=== PATIENT | female | born 1940 | race Caucasian/White ===

== ENCOUNTER 2017-02-12 15:23 | Observation (INO) | payer MEDICARE, BC ==
--- NOTE | 2017-02-12 16:00 | ERNOTE ---
Date of Service: 02/12/17 Time Seen by Provider: 02/12/17 15:45 Stated Complaint: PNEUMONIA, DIARRHEA Presenting Symptoms:: cough Source: patient, family - sister in law Immunizations: IMMUNIZATION HX Immunizations Up to Date Yes History of Influenza Vaccine No Hx Pneumococcal Vaccination No Allergies/Adverse Reactions: Allergies Iodinated Contrast- Oral and IV Dye [Iodinated Contrast Media - IV Dye] Allergy (Verified 02/12/17 18:02) iodine Allergy (Verified 02/12/17 18:02) rash flushing contrast dye Allergy (Uncoded 02/12/17 18:02) [place] Home Medications: HOME MEDICATIONS ALPRAZolam [Xanax] 0.25 mg PO QAM 07/11/14 [Last Taken Unknown] Atenolol [Tenormin] 100 mg PO DAILY 07/11/14 [Last Taken Unknown] Atorvastatin Calcium [Lipitor] 40 mg PO HS 07/11/14 [Last Taken Unknown] FLUoxetine HCL [Fluoxetine HCl] 20 mg PO DAILY 07/11/14 [Last Taken Unknown] Furosemide [Lasix] 20 mg PO DAILY 07/11/14 [Last Taken Unknown] Meclizine HCl [Bonine] 25 mg PO TID #30 tab.chew 07/11/14 [Last Taken Unknown] Nitroglycerin [Nitrostat] 0.4 mg SL Q5MIN PRN 07/11/14 [Last Taken Unknown] Potassium Chloride [Klor-Con M10] 10 meq PO TID 07/11/14 [Last Taken Unknown] Topiramate [Topamax] 50 mg PO TID 07/11/14 [Last Taken Unknown] glipiZIDE [Glucotrol Xl] 5 mg PO DAILY 07/11/14 [Last Taken Unknown] - History of Present Ilness Narrative: 76yo, F, presents to ER with "worsening of pneumonia". She was dx with pneumonia at the [facility] by Jennie Jenkins NP on 02/10/16 and started on Levaquin PO, along with Probiotics for diarrhea. Jennie had spoke with Dr. Rodriguez on 02/10/16 and at that time pt opted for home treatment. She reports lying in bed for the last several days, is having productive cough, wheezing, SOB, diffuse body aches , weakness, and chills. Denies any fever at home. States she is feeling much worse since her last visit. She is drinking fluids, but oral intake of food decreased. She reports good urine output, but does continue to have diarrhea. Diarrhea has been present since 02/10/16, states she is having multiple episodes per day, too many too count. States "everything I eat goes right through me." Symptoms remind her of when she had c-diff in the past. Date (Duration): 02/07/17 Timing: getting worse Severity: severe Modifying Factors - Improves: Reports: nothing Modifying Factors - Worsens: Reports: activity Associated Symptoms: Reports: cough, shortness of breath, wheezing, dizziness, sore throat, fever/chills. Denies: chest pain/soreness Prior Treatment: Reports: recently seen, currently on antibiotics - Levaquin 500mg Review of Systems - Review of Systems Constitutional: Present: chills, weakness, fatigue. Absent: fever ENT: Present: sore throat. Absent: ear pain, nose congestion Respiratory: Present: shortness of breath, cough, wheezing Cardiology: Absent: chest pain, syncope, edema Gastrointestinal/Abdominal: Present: diarrhea. Absent: nausea, vomiting, abdominal pain Genitourinary: Absent: frequency, dysuria, decreased urinary output Skin: Absent: rash Neurological: Present: dizziness/light-headedness, weakness - Patient's Past Medical History Patient History - Medical: Diabetes Type 1 Patient History - Cardiac/Respiratory: No pertinent hx Patient History - Cancer: No Hx of Cancer Patient History - Surgical Procedures: No surgical history Patient History - Other: None LMP (females 10-50): Menopausal - Family History Mother Family History - Medical: Father Family History - Medical: Family History - Cardiac/Respiratory: Aneurysm - Social History Living Situations: home Abuse History: No History of abuse Psych History: No pertinent hx Smoking Status: Current every day smoker Have you smoked in the past 12 months: Yes Do you dip or chew tobacco: No Alcohol Use: none Drug Use: none - Immunizations Immunizations Up to Date: Yes Hx Pneumococcal Vaccination: No History of Influenza Vaccine: No Physical Exam - Physical Exam General Appearance: Present: wd/wn, alert Head Exam: Present: normal inspection, no evidence of injury Ears, Nose, Throat: Present: normal ENT inspection Respiratory: Present: no accessory muscle use, decreased breath sounds - throughout, rales - R. base. Absent: rhonchi Cardiovascular/Chest: Present: regular rate, rhythm, no murmur Gastrointestinal/Abdominal: Present: normal bowel sounds, nontender, nondistended, soft Neurological Exam: Present: alert, oriented ED Progress - Date and Time Seen: Date and Time: 02/12/17 16:[address] Rodriguez re: HPI, pending labs and xray orders, but pt is notably worsening since her visit to [facility] with SOB, productive cough and weakness. Order received for admission to hospital, dx: Pneumonia with failed outpt tx. 02/12/17 17:10 Discussed orders and plan for admission - Results and Orders Patient's Lab Results:: I have reviewed the patient's lab results. - Vital Signs Patient's Vital Signs:: I have reviewed the patient's vital signs. Vital Signs: Vital Signs 02/12/17 15:31 Temperature 36.5 C Pulse Rate 69 Respiratory 20 Rate Blood Pressure 127/66 O2 Sat by Pulse 98 Oximetry - X-Ray X-Ray #1 X-Ray: chest Interpretation: Reviewed by me X-ray Comments: [facility] PATIENT RADIOLOGY STUDY REPORT Patient Patient Name:DOROTEO HUIZAR Date: 1940 Sex: F Order Number: [id number] Unique Exam ID: [id number] Exam Requested: CXRPALAT - Chest PA Lateral * Date Scheduled: 02-12-2017 05:18 PM Study Priority: Requesting Service: Requesting Physician: Geno Nuno Reason for Exam: cough, wheezing, sob, dx pneumonia 02/10/16 Radiological Report : [facility] [address] [place] [address] NAME: DOROTEO HUIZAR : 1940 MR #: [id number] CC: LOC: ADM DATE: 02/12/17 X-RAY REPORT [id number] RAD/Chest PA Lateral * Exam Date: 02/12/2017 17:18 Ordering Physician: Geno Nuno History: Cough. Wheezing. Shortness of breath. Technique: PA and lateral views of the chest utilizing 3 total images are compared to prior dated February 09, 2017 Findings: Diffuse hyperinflation of the lungs bilaterally with flattening of the hemidiaphragm. Stable chronic scarring and scattered calcified granulomas. Previously described lingular atelectasis versus infiltrate has resolved. The lungs are clear bilaterally. There is no consolidation, pleural effusion or pneumothorax. Cardiac silhouette and pulmonary vasculature are normal. The osseous structures demonstrate degenerative changes of the spine and shoulders. IMPRESSION: NO ACUTE CARDIOPULMONARY ABNORMALITY IDENTIFIED. Electronically signed by Alana Lema D.O.. Alana Lema DO Dict: 02/12/171721 Typed: 02/12/171721/ 02/12/17 1724 02/12/17 1727 , Approved by: ALANA LEMA Approval Date: 02-12-2017 Approval Time: 05:22 PM THIS REPORT WAS RECEIVED FROM THE [facility] - Progress/Reassessment Chief Complaint: Cough Progress:: Unchanged Departure Clinical Impression: Failure of outpatient treatment Pneumonia Qualifiers: Pneumonia type: due to unspecified organism Laterality: unspecified laterality Lung location: unspecified part of lung Qualified Code(s): J18.9 - Pneumonia, unspecified organism - Departure Disposition: [facility] Condition: Fair
[2017-02-12] MEDS ORDERED: ALBUTEROL SULFATE/IPRATROPIUM 3 ML NEBU IH ONE ×2 (16:05→16:45)
[2017-02-12] MEDS ORDERED: NORMAL SALINE 500 ML IV ONE (16:16)
[2017-02-12 16:29] LABS: Hematocrit 37.5 % (37.0-47.0); Hemoglobin 12.4 gm/dL (12.5-16.0); Mean Cell Volume 83.7 fl (78-100); Mean Corpuscular Hemoglobin 27.7 pg (27-31); Mean Corpuscular Hgb Conc 33.1 g/dl (32-36); Neutrophil # 3.3 K/mm3 (1.3-6.0); Neutrophil % 67.7 % (42-75.0); Platelet Count 110 K/mm3 (150-450); Red Blood Count 4.48 M/mm3 (4.2-5.4); Red Cell Distribution Width 13.1 % (11.5-14.0); White Blood Count 4.9 K/mm3 (4.0-10.5)
[2017-02-12 16:47] LABS: Albumin * 3.5 gm/dl (3.4-5.0); Anion Gap 12.7 mmol/L (6.8-13.8); Bilirubin, Total 0.5 mg/dL (0.0-1.1); Ca. Corrected For Albumin 8.8 mg/dL (8.4-10.2); Calcium * 8.7 mg/dL (7.9-10.9); Carbon Dioxide 26.4 mmol/L (24-32.6); Potassium 3.1 mmol/L (3.4-4.6); Total Protein 7.2 gm/dL (6.2-8.2)
[2017-02-12] MEDS ORDERED: AZITHROMYCIN 500 MG in DEXTROSE 5 % IN WATER 250 ML IV SCH ×2 (17:30)
[2017-02-12] MEDS: NORMAL SALINE 1,000 ML IV PRN (18:06)
[2017-02-12] MEDS ORDERED: POTASSIUM CHLORIDE 20 MEQ TABLET.SA PO ONE (20:01)
--- NOTE | 2017-02-12 22:35 | HP ---
Chief Complaint - Chief Complaint Date of Service: 02/12/17 Time of Service: 22:33 Chief Complaint: Shortness of breath, cough, dizziness, fever and chills History of Present Illness: 76 years old female adm to the hospital with reports of cough, wheezing, shortness of breath and dizziness. Pt stated she was seen at the [facility] 02/09/17, she was diagnosed with pneumonia and recommend to be in the hospital. pt choose to go home with Levaquin 500mg, despite out-pt therapy she continue to get progressively worst. She failed out-pt therapy and is been adm in-pt for further management, she was initiated on Rocephin and Azithromycin in ER. Plan of care discussed with pt she verbalized understanding and agree. - Patient's Past Medical History Patient History - Medical: Diabetes Type 1, Kidney stone, Renal Disease - CKD III, Other - spinal stenosis, DJD Patient History - Cardiac/Respiratory: Hypertension, Other - CAD Patient History - Cancer: No Hx of Cancer Patient History - Surgical Procedures: Total Knee Replacement - Right knee replacement Patient History - Other: None LMP (females 10-50): Menopausal - Family History Mother Family History - Medical: Father Family History - Medical: Family History - Cardiac/Respiratory: Aneurysm - Social History Living Situations: alone Abuse History: No History of abuse Psych History: No pertinent hx Smoking Status: Current every day smoker Cigarettes Packs Per Day: 1 Have you smoked in the past 12 months: Yes Do you dip or chew tobacco: No Patient requests Smoking Cessation Consult: No Initiate information on Smoking Cessation: No Alcohol Use: none Drug Use: none - Immunizations Immunizations Up to Date: Yes Hx Pneumococcal Vaccination: No History of Influenza Vaccine: No Review Of Systems (GEN) - Review of Systems Generalized/Overall Review: Present: Chills, Fever EENTM: Present: No Symptoms Reported Respiratory: Present: Cough, Shortness of Breath, Orthopnea Cardiac: Present: No Symptoms Reported Abdominal: Present: No Symptoms Reported Genitourinary: Present: No Symptoms Reported Musculoskeletal: Present: No Symptoms Reported Neurological: Present: No Symptoms Reported Skin: Present: No Symptoms Reported Endocrine: Present: No Symptoms Reported Immunizations: IMMUNIZATION HX Immunizations Up to Date Yes History of Influenza Vaccine No Hx Pneumococcal Vaccination No Allergies/Adverse Reactions: Allergies Allergy/AdvReac Type Severity Reaction Status Date / Time Iodinated Contrast- Oral and Allergy Verified 02/12/17 18:02 IV Dye [Iodinated Contrast Media - IV Dye] iodine Allergy rash Verified 02/12/17 18:02 flushing contrast dye Allergy [place] Uncoded 02/12/17 18:02 Home Medications: HOME MEDICATIONS ALPRAZolam [Xanax] 0.25 mg PO QAM 07/11/14 [Last Taken Unknown] Atenolol [Tenormin] 100 mg PO DAILY 07/11/14 [Last Taken Unknown] Atorvastatin Calcium [Lipitor] 40 mg PO HS 07/11/14 [Last Taken Unknown] FLUoxetine HCL [Fluoxetine HCl] 30 mg PO DAILY 07/11/14 [Last Taken Unknown] Furosemide [Lasix] 20 mg PO BID 07/11/14 [Last Taken Unknown] Nitroglycerin [Nitrostat] 0.4 mg SL Q5MIN PRN 07/11/14 [Last Taken Unknown] Potassium Chloride [Klor-Con M10] 10 meq PO TID 07/11/14 [Last Taken Unknown] Topiramate [Topamax] 50 mg PO TID 07/11/14 [Last Taken Unknown] glipiZIDE [Glucotrol Xl] 5 mg PO DAILY 07/11/14 [Last Taken Unknown] ALPRAZolam [Xanax] 0.5 mg PO HS 02/12/17 [Last Taken Unknown] Acetaminophen [Arthritis Pain Relief] 650 mg PO QAM PRN 02/12/17 [Last Taken Unknown] Aspirin 81 mg PO DAILY 02/12/17 [Last Taken Unknown] Calcitriol 0.25 mcg PO 3XW 02/12/17 [Last Taken Unknown] Cholecalciferol [Vitamin D] 1,000 unit PO DAILY 02/12/17 [Last Taken Unknown] Doxazosin Mesylate [Cardura] 1 mg PO DAILY 02/12/17 [Last Taken Unknown] Febuxostat [Uloric] 40 mg PO DAILY 02/12/17 [Last Taken Unknown] Levofloxacin [Levaquin] 500 mg PO DAILY 02/12/17 [Last Taken Unknown] Loratadine 10 mg PO DAILY 02/12/17 [Last Taken Unknown] Meclizine HCl 25 mg PO TID PRN 02/12/17 [Last Taken Unknown] Meclizine HCl [Bonine] 25 mg PO TID PRN 02/12/17 [Last Taken Unknown] Omeprazole 40 mg PO DAILY 02/12/17 [Last Taken Unknown] Pramipexole Di-HCl [Pramipexole Dihydrochloride] 0.25 mg PO DAILY 02/12/17 [ Last Taken Unknown] Proair Hfa 90 mcg IH BID 02/12/17 [Last Taken Unknown] Loperamide HCl [Imodium] 2 - 4 mg PO Q4H PRN #30 capsule 02/13/17 [Last Taken Unknown] Exam - Exam Vital Signs: Vital Signs - Last Taken Temp 36.6 C 02/12/17 17:41 Pulse 64 02/12/17 17:41 Resp 16 02/12/17 17:41 BP 150/60 02/12/17 17:41 Pulse Ox 94 02/12/17 17:41 Constitutional: Present: Alert, Oriented x3, Cooperative, Well developed, Well nourished, No distress ENT Exam: Present: hearing grossly normal Eye Exam: bilateral eye: normal inspection Neck: Present: full range of motion Back Exam: Present: normal inspection, no CVA tenderness Breasts: Present: Exam deferred Respiratory: Present: chest non-tender, no respiratory distress, decreased breath sounds, rales, rhonchi, wheezing Cardiovascular/Chest: Present: normal peripheral pulses, regular rate, rhythm, no chest tenderness, no edema Peripheral Pulses: dorsalis-pedis (R): 3+, dorsalis-pedis (L): 3+ Abdomen: Present: Normal bowel sounds, soft, nontender, nondistended, no rebound tenderness /Rectal: Present: Exam deferred Extremity: Present: normal range of motion, non-tender, normal inspection, no pedal edema, no calf tenderness Skin Exam: Present: normal color, warm/dry Neurologic: Present: oriented x 3 Appearance: Present: appropriate appearance Eye contact: Present: cooperative, good eye contact Thoughts: Present: normal thought pattern Diagnostic Studies: Laboratory Results WBC 4.9 K/mm3 (4.0-10.5) 02/12/17 16:19 RBC 4.48 M/mm3 (4.2-5.4) 02/12/17 16:19 Hgb 12.4 gm/dL (12.5-16.0) L 02/12/17 16:19 Hct 37.5 % (37.0-47.0) 02/12/17 16:19 MCV 83.7 fl (78-100) 02/12/17 16:19 MCH 27.7 pg (27-31) 02/12/17 16:19 MCHC 33.1 g/dl (32-36) 02/12/17 16:19 RDW 13.1 % (11.5-14.0) 02/12/17 16:19 Plt Count 110 K/mm3 (150-450) L 02/12/17 16:19 MPV 10.0 fl (6.0-9.5) H 02/12/17 16:19 Immature Gran % (Auto) 0.40 % (0.001-0.429) 02/12/17 16:19 Immature Gran # (Auto) 0.02 K/mm3 (0.000-0.0310) 02/12/17 16:19 Neutrophils % 67.7 % (42-75.0) 02/12/17 16:19 Lymphocytes % 20.6 % (20-51) 02/12/17 16:19 Monocytes % 11.3 % (0.0-9) H 02/12/17 16:19 Eosinophils % 0.0 % (0.0-3.0) 02/12/17 16:19 Basophils % 0.0 % (0.0-1.0) 02/12/17 16:19 Nucleated RBC % 0.0 k/mm3 (0-1) 02/12/17 16:19 Neutrophils # 3.3 K/mm3 (1.3-6.0) 02/12/17 16:19 Lymphocytes # 1.0 k/mm3 (1.5-3.5) L 02/12/17 16:19 Monocytes # 0.6 k/mm3 (0.0-1.0) 02/12/17 16:19 Eosinophils # 0.0 k/mm3 (0.0-0.7) 02/12/17 16:19 Absolute Basophils 0.0 k/mm3 (0.0-0.1) 02/12/17 16:19 Sodium 144 mmol/L (132-142) H 02/12/17 16:19 Plasma Sodium 144 mmol/L (130-142) H 02/12/17 16:19 Potassium 3.1 mmol/L (3.4-4.6) L 02/12/17 16:19 Chloride 108 mmol/L (97-106) H 02/12/17 16:19 Carbon Dioxide 26.4 mmol/L (24-32.6) 02/12/17 16:19 Anion Gap 12.7 mmol/L (6.8-13.8) 02/12/17 16:19 BUN 17 mg/dL (3-23) 02/12/17 16:19 Creatinine 1.70 mg/dL (0.4-1.4) H 02/12/17 16:19 Est GFR (Non-Af Amer) 31 mL/min (60-130) L 02/12/17 16:19 BUN/Creatinine Ratio 10.0 (9.0-21.6) 02/12/17 16:19 Random Glucose 115 mg/dL (70-110) H 02/12/17 16:19 Lactic Acid, Venous 1.2 mmol/L (0.4-1.9) 02/12/17 16:19 Calcium 8.7 mg/dL (7.9-10.9) 02/12/17 16:19 Calcium Adj for Albumin 8.8 mg/dL (8.4-10.2) 02/12/17 16:19 Total Bilirubin 0.5 mg/dL (0.0-1.1) 02/12/17 16:19 AST 23 U/L (0-48) 02/12/17 16:19 ALT 17 U/L (19-67) L 02/12/17 16:19 Alkaline Phosphatase 91 U/L (50-170) 02/12/17 16:19 B-Natriuretic Peptide 1078 pg/mL (5-550) H 02/12/17 16:19 Total Protein 7.2 gm/dL (6.2-8.2) 02/12/17 16:19 Albumin 3.5 gm/dl (3.4-5.0) 02/12/17 16:19 Stl C.difficile Tox A&B Negative (Negative) 02/12/17 19:30 Influenza Type A Ag Negative (NEGATIVE) 02/12/17 16:19 Influenza Type B Ag Negative (NEGATIVE) 02/12/17 16:19 CXR: No acute cardiopulmonary process Assessment/Plan - Narrative Narrative: Pneumonia pt failed out-pt therapy while on Levaquin Switched to Rocephin and Azithromycin while in-pt Encourage use of cornet Continue with neb treatments CKD III On adm Bun/ cre 17/1.70 Continue with gentle hydration montor BMP in AM Hypokalemia On adm K+ 3.1 supplemented and monitor BMP Code status: full GI ppx:protonix VTE ppx:SCd and ambulate Time 45 minutes and case discussed with Dr Rodriguez - Assessment/Plan (1) Pneumonia Problem: Acute Qualifiers: Pneumonia type: due to unspecified organism Laterality: unspecified laterality Lung location: unspecified part of lung Qualified Code(s): J18.9 - Pneumonia, unspecified organism (2) Failure of outpatient treatment Problem: Acute
[2017-02-12] MEDS ORDERED: MECLIZINE HCL 25 MG TABLET PO PRN (22:47)
[2017-02-12] MEDS ORDERED: MECLIZINE HCL 25 MG PO PRN (22:47)
[2017-02-12] MEDS ORDERED: NITROGLYCERIN 0.4 MG/TAB BTL SL PRN (22:47)
[2017-02-12] MEDS ORDERED: ALPRAZolam 0.5 MG TABLET ONE (22:59)
[2017-02-12] MEDS ORDERED: CALCITRIOL 0.25 MCG CAPSULE PO SCH (23:00)
[2017-02-12] MEDS ORDERED: ALPRAZolam 0.5 MG TABLET PO SCH (23:00)
[2017-02-12] MEDS ORDERED: ALBUTEROL SULFATE 60 PUFF INHALER IH SCH (23:12)
[2017-02-12] MEDS ORDERED: ACETAMINOPHEN 325 MG TABLET PO PRN (23:14)
[2017-02-12] MEDS ORDERED: NICOTINE 21 MG PATC TD SCH (23:15)
[2017-02-13] MEDS: TOPIRAMATE 50 MG TABLET PO SCH ×3 (01:34→12:54)
[2017-02-13] MEDS: NORMAL SALINE 1,000 ML IV PRN (03:03)
[2017-02-13 06:21] LABS: Anion Gap 14.9 mmol/L (6.8-13.8); BUN/Creatinine Ratio 9.4 (9.0-21.6); Calcium * 8.2 mg/dL (7.9-10.9); Carbon Dioxide 20.7 mmol/L (24-32.6); Estimated Creat Clear 28.5; Potassium 2.6 mmol/L (3.4-4.6)
[2017-02-13] MEDS ORDERED: PANTOPRAZOLE SODIUM 40 MG TABLET.EC PO SCH (07:00)
[2017-02-13] MEDS ORDERED: ALBUTEROL SULFATE 2.5 MG/0.5 ML VIAL.NEB IH SCH (07:00)
[2017-02-13] MEDS ORDERED: POTASSIUM CHLORIDE 20 MEQ in NORMAL SALINE 1,000 ML IV SCH (07:00)
[2017-02-13] MEDS: POTASSIUM CHLORIDE 10 MEQ TABLET.SA PO SCH ×2 (08:31→12:54)
[2017-02-13] MEDS ORDERED: ASPIRIN 81 MG TAB.CHEW PO SCH (09:00)
[2017-02-13] MEDS ORDERED: FLUoxetine HCL 10 MG CAPSULE PO SCH (09:00)
[2017-02-13] MEDS ORDERED: ALPRAZolam 0.25 MG TABLET PO SCH (09:00)
[2017-02-13] MEDS ORDERED: DOXAZOSIN MESYLATE 2 MG TABLET PO SCH (09:00)
[2017-02-13] MEDS ORDERED: glipiZIDE 5 MG TAB.SR.24H PO SCH (09:00)
[2017-02-13] MEDS ORDERED: LORATADINE 10 MG TABLET PO SCH (09:00)
[2017-02-13] MEDS ORDERED: FEBUXOSTAT 40 MG TABLET PO SCH (09:00)
[2017-02-13] MEDS ORDERED: PRAMIPEXOLE DI-HCL 0.5 MG TABLET PO SCH (09:00)
[2017-02-13] MEDS ORDERED: CHOLECALCIFEROL 1,000 UNIT CAPSULE PO SCH (09:00)
[2017-02-13] MEDS ORDERED: ATENOLOL 50 MG TABLET PO SCH (09:00)
[2017-02-13] MEDS ORDERED: ENOXAPARIN SODIUM 30 MG/0.3 ML SYRG SC SCH (09:15)
[2017-02-13] MEDS ORDERED: LOPERAMIDE HCL 2 MG CAPSULE PO ONE (09:28)
[2017-02-13] MEDS ORDERED: POTASSIUM CHLORIDE 20 MEQ TABLET.SA PO ONE ×3 (09:29→12:53)
[2017-02-13 12:19] LABS: Anion Gap 12.9 mmol/L (6.8-13.8); BUN/Creatinine Ratio 8.3 (9.0-21.6); Calcium * 8.1 mg/dL (7.9-10.9); Carbon Dioxide 20.3 mmol/L (24-32.6); Potassium 3.2 mmol/L (3.4-4.6)
--- NOTE | 2017-02-13 14:05 | DS ---
(1) Antibiotic-associated diarrhea Problem: Acute (2) Hypokalemia Problem: Acute (3) Diarrhea Problem: Acute (4) Failure of outpatient treatment Problem: Acute (5) Pneumonia Problem: Acute Qualifiers: Pneumonia type: due to unspecified organism Laterality: unspecified laterality Lung location: unspecified part of lung Qualified Code(s): J18.9 - Pneumonia, unspecified organism Description of Stay: ADMISSION DATE: 02/12/2017 DISCHARGE DATE: 02/13/2017 ADMISSION HPI by RADHA Burton: 76 years old female adm to the hospital with reports of cough, wheezing, shortness of breath and dizziness. Pt stated she was seen at the [facility] 02/09/17, she was diagnosed with pneumonia and recommend to be in the hospital. pt choose to go home with Levaquin 500mg, despite out-pt therapy she continue to get progressively worst. She failed out-pt therapy and is been adm in-pt for further management, she was initiated on Rocephin and Azithromycin in ER. Plan of care discussed with pt she verbalized understanding and agree. HOSPITAL COURSE: The patient was originally admitted to the hospital for pneumonia and failure to improve despite outpatient therapy. However, after I evaluated the patient she stated the reason she came to the emergency department was because of the diarrhea she was having. She stated that her pneumonia was improving but she couldnt put up with all the diarrhea she was having at home so she came in to the ED to have us make her diarrhea stopped. C. difficile testing was negative and there were no pathogens isolated on her stool culture. The patient was given Imodium with improvement and stabilization of her diarrhea and discharged home in stable condition and instructed to complete her course of antibiotics as previously prescribed for her pneumonia. I encouraged her to take a probiotic for the remaining duration of her antibiotics and then continue this for 14 days after completion of her antibiotics. I also instructed her that she could take Imodium as needed. FOLLOW-UP APPOINTMENTS: -Follow-up with PCP within 1 week -Check BMP (monitor kidney function and potassium level) within 1 week NEW OR CHANGED MEDICATIONS: None DISCONTINUED MEDICATIONS: None RADIOLOGY REPORTS: PA and lateral chest x-ray on 02/12/2017: No acute cardiopulmonary abnormality identified. Procedures Performed: none Results and Findings: Microbiology 02/12/17 19:30 Stool Stool Culture - Final No Pathogens Isolated 02/12/17 16:40 Blood Blood Culture - Final NO GROWTH 5 DAYS 02/12/17 16:19 Blood Blood Culture - Final NO GROWTH 5 DAYS Laboratory Tests 02/12/17 02/12/17 02/12/17 16:19 16:19 16:19 WBC 4.9 Hgb 12.4 L Plt Count 110 L Sodium 144 H Potassium 3.1 L Chloride 108 H Creatinine 1.70 H Est GFR (Non-Af Amer) 31 L Random Glucose 115 H Lactic Acid, Venous 1.2 Calcium 8.7 Calcium Adj for Albumin 8.8 Total Bilirubin 0.5 AST 23 ALT 17 L Alkaline Phosphatase 91 B-Natriuretic Peptide 1078 H Total Protein 7.2 Albumin 3.5 Stl C.difficile Tox A&B Influenza Type A Ag Influenza Type B Ag 02/12/17 02/12/17 02/13/17 16:19 19:30 05:10 WBC Hgb Plt Count Sodium 143 H Potassium 2.6 L Chloride 110 H Creatinine 1.39 Est GFR (Non-Af Amer) 39 L D Random Glucose Lactic Acid, Venous Calcium Calcium Adj for Albumin Total Bilirubin AST ALT Alkaline Phosphatase B-Natriuretic Peptide 1066 H Total Protein Albumin Stl C.difficile Tox A&B Negative Influenza Type A Ag Negative Influenza Type B Ag Negative 02/13/17 12:11 WBC Hgb Plt Count Sodium 141 Potassium 3.2 L D Chloride 111 H Creatinine 1.32 Est GFR (Non-Af Amer) 42 L Random Glucose Lactic Acid, Venous Calcium Calcium Adj for Albumin Total Bilirubin AST ALT Alkaline Phosphatase B-Natriuretic Peptide Total Protein Albumin Stl C.difficile Tox A&B Influenza Type A Ag Influenza Type B Ag Discharge Disposition: Home self care Disposition: Home self-care Condition: Stable Discharge Activity: Activity as tolerated Discharge Diet: Consistent carbs Referrals: Elham Pinon MD [Primary Care Provider] - Problem Oriented Discharge Instructions to Patient/Family: Community-Acquired Pneumonia, Adult, [id number] Additional Patient Instructions (free text): -Please make TCM appointment unless prison discharge. Thank you! Anitha @ [phone]. -Follow-up with Dr. Pinon on 02/20/17 at 2:15pm. -Check potassium level within 1 week Prescriptions (Any new or edited meds): Loperamide HCl [Imodium] 2 - 4 mg PO Q4H PRN #30 capsule PRN Reason: Diarrhea Complete Home Medications List: Complete Home Medication List: ALPRAZolam [Xanax] 0.25 mg PO QAM 07/11/14 Atenolol [Tenormin] 100 mg PO DAILY 07/11/14 Atorvastatin Calcium [Lipitor] 40 mg PO HS 07/11/14 FLUoxetine HCL [Fluoxetine HCl] 30 mg PO DAILY 07/11/14 Furosemide [Lasix] 20 mg PO BID 07/11/14 Nitroglycerin [Nitrostat] 0.4 mg SL Q5MIN PRN 07/11/14 Potassium Chloride [Klor-Con M10] 10 meq PO TID 07/11/14 Topiramate [Topamax] 50 mg PO TID 07/11/14 glipiZIDE [Glucotrol Xl] 5 mg PO DAILY 07/11/14 ALPRAZolam [Xanax] 0.5 mg PO HS 02/12/17 Acetaminophen [Arthritis Pain Relief] 650 mg PO QAM PRN 02/12/17 Aspirin 81 mg PO DAILY 02/12/17 Calcitriol 0.25 mcg PO 3XW 02/12/17 Cholecalciferol [Vitamin D] 1,000 unit PO DAILY 02/12/17 Doxazosin Mesylate [Cardura] 1 mg PO DAILY 02/12/17 Febuxostat [Uloric] 40 mg PO DAILY 02/12/17 Levofloxacin [Levaquin] 500 mg PO DAILY 02/12/17 Loratadine 10 mg PO DAILY 02/12/17 Meclizine HCl 25 mg PO TID PRN 02/12/17 Meclizine HCl [Bonine] 25 mg PO TID PRN 02/12/17 Omeprazole 40 mg PO DAILY 02/12/17 Pramipexole Di-HCl [Pramipexole Dihydrochloride] 0.25 mg PO DAILY 02/12/17 Proair Hfa 90 mcg IH BID 02/12/17 Loperamide HCl [Imodium] 2 - 4 mg PO Q4H PRN #30 capsule 02/13/17 Amb Orders for Discharge: Basic Metabolic Panel Time Frame: 1 Week, Location: Determined By Patient
[2017-02-13 14:25] VITALS: BP 173/57
[2017-02-13] MEDS ORDERED: ATORVASTATIN CALCIUM 40 MG TABLET PO SCH (21:00)
== END 2017-02-13 15:53 | disposition home or self-care (01) ==
LOC: ER 15:23 → MS 17:00 → INTOOBSV 17:00
PROVIDERS: ADMIT Internal Medicine; ATTEND Internal Medicine
DX: J18.9 Pneumonia, unspecified organism (principal); I12.9 Hypertensive chronic kidney disease with stage 1 through stage 4 chronic kidney disease, or unspecified chronic kidney disease; N18.3 Chronic kidney disease, stage 3 (moderate); F17.210 Nicotine dependence, cigarettes, uncomplicated; K52.1 Toxic gastroenteritis and colitis; T36.95XA Adverse effect of unspecified systemic antibiotic, initial encounter; M48.00 Spinal stenosis, site unspecified; E87.6 Hypokalemia; E10.9 Type 1 diabetes mellitus without complications
CPT/HCPCS: 36415; 71046; 80048; 80053; 83605; 83880; 85025; 87040; 87045; 87046; 87400; 87493; 94640; 96365; 96367; 96372; 97116; 97161; 97530; 99284; G0378